=== PATIENT | male | born 1995 ===

== ENCOUNTER 2022-02-27 22:56 | Emergency (ER) | payer BC ==
[2022-02-27] MEDS ORDERED: Naproxen 250 MG Tab PO PRN (23:13)
[2022-02-27] MEDS ORDERED: Acetaminophen 325 MG Tab PO PRN (23:14)
[2022-02-27] MEDS ORDERED: Lidocaine 4% 1 each Patch TOP PRN (23:15)
== END 2022-02-27 23:55 | disposition home or self-care (01) ==
LOC: LL.ED 22:56
DX: M54.6 Pain in thoracic spine (principal); M54.50 Low back pain, unspecified
CPT/HCPCS: 99283; A9270-GY